=== PATIENT | female | born 1940 | race Two or more races ===

== ENCOUNTER 2023-12-09 18:10 | Inpatient (IN) | payer MEDICARE, BC ==
[~2023-12-09] VITALS: Ht 154.9 cm; Wt 55.8 kg
[2023-12-09 18:55] VITALS: PULSE 132; RESP 38; O2SAT 90
[2023-12-09] MEDS: dilTIAZem 25 MG/5 ML VIAL IV ONE (19:04)
[2023-12-09 19:07] LABS: Basophils # (auto) 0 10 ^3/uL (0-0.2); Basophils % (auto) 0.6 % (0.0-2.0); Eosinophils # (auto) 0.1 10 ^3/uL (0-0.8); Eosinophils % (auto) 0.9 % (0.0-7.0); Hematocrit 45.3 % (36.0-46.0); Hemoglobin 14.8 g/dL (12.2-16.2); Lymphocytes # (auto) 1.3 10 ^3/uL (0.4-5.4); Lymphocytes % (auto) 16.8 % (10.0-50.0); Mean Corpuscular Hemoglobin 27.5 pg (28.0-32.0); Mean Corpuscular Hgb Conc. 32.6 g/dL (32.0-36.0); Mean Corpuscular Volume 84.4 fL (80.0-100.0); Monocytes # (auto) 0.7 10 ^3/uL (0-1.3); Neutrophils # (auto) 5.6 10 ^3/uL (1.6-8.6); Neutrophils % (auto) 72.7 % (37.0-80.0); Nucleated Red Blood Cells % 0.4 %; Red Blood Cells 5.37 10^6/uL (4.0-5.20); Red Cell Distribution Width 16.2 % (11.8-14.3); White Blood Cell 7.7 10^3/uL (4.4-10.8)
[2023-12-09 19:23] LABS: Alanine Aminotransferase 15 U/L (7-40); Albumin 3.1 g/dL (3.2-4.8); Alkaline Phosphatase 104 U/L (46-116); Anion Gap 9 (5-15); Aspartate Aminotransferase 11 U/L (13-40); BUN/Creatinine Ratio 21.7 (10.0-20.0); Bilirubin, Total 1.5 mg/dL (0.2-1.0); Blood Urea Nitrogen 25 mg/dL (9-23); Calcium 9.2 mg/dL (8.7-10.4); Carbon Dioxide 20 mmol/L (20-30); Chloride 114 mmol/L (98-107); Glucose 106 mg/dL (74-106); Lipase 35 U/L (12-53); Potassium 4.7 mmol/L (3.5-5.1); Sodium 143 mmol/L (136-145); Total Protein 7.5 g/dL (5.7-8.2)
[2023-12-09 19:26] LABS: Lactic Acid w/Reflex 2.1 mmol/L (0.4-2.0)
[2023-12-09 19:45] VITALS: PULSE 86; RESP 33; O2SAT 93
[2023-12-09] MEDS: ENOXAPARIN SOD 40 MG/0.4 ML SYRINGE SC ONE (19:45)
[2023-12-09] MEDS: FUROSEMIDE 40 MG/4 ML VIAL IV ONE (19:45)
[2023-12-09] MEDS: SODIUM CHLORIDE 0.9% 1,000 ML IV ONE (19:57)
[2023-12-09] MEDS ORDERED: ONDANSETRON HCL 4 MG/2 ML VIAL IV PRN (20:15)
[2023-12-09] MEDS ORDERED: HYDROmorphone HCL 2 MG/ML VL/or syr IV PRN (20:15)
[2023-12-09] MEDS ORDERED: NITROGLYCERIN 0.4 MG SL TAB SL PRN (20:15)
[2023-12-09] MEDS ORDERED: HYDROcodone-ACET 5/325MG TAB PO PRN (20:15)
[2023-12-09] MEDS ORDERED: ACETAMINOPHEN 325 MG TAB PO PRN (20:15)
[2023-12-09] MEDS ORDERED: MORPHINE SULFATE INJ 2 MG/ml SYRG IV PRN (20:15)
[2023-12-09] MEDS: IOHEXOL 350 MG/ML 100ML IJ ONE (21:11)
[2023-12-09] MEDS: SODIUM CHLOR 0.9% PF (SALINE LOCK) 10ML VIAL/SYR IV SCH (22:28)
[2023-12-09 22:57] LABS: Basophils # (auto) 0 10 ^3/uL (0-0.2); Basophils % (auto) 0.4 % (0.0-2.0); Eosinophils # (auto) 0.1 10 ^3/uL (0-0.8); Eosinophils % (auto) 0.9 % (0.0-7.0); Hematocrit 46.3 % (36.0-46.0); Hemoglobin 14.5 g/dL (12.2-16.2); Lymphocytes # (auto) 1.5 10 ^3/uL (0.4-5.4); Lymphocytes % (auto) 17.3 % (10.0-50.0); Mean Corpuscular Hemoglobin 27.5 pg (28.0-32.0); Mean Corpuscular Hgb Conc. 31.3 g/dL (32.0-36.0); Mean Corpuscular Volume 87.7 fL (80.0-100.0); Monocytes # (auto) 0.9 10 ^3/uL (0-1.3); Monocytes % (auto) 10.2 % (0.0-12.0); Neutrophils # (auto) 6.1 10 ^3/uL (1.6-8.6); Neutrophils % (auto) 71.2 % (37.0-80.0); Nucleated Red Blood Cells % 0.6 %; Red Blood Cells 5.27 10^6/uL (4.0-5.20); Red Cell Distribution Width 16.7 % (11.8-14.3); White Blood Cell 8.6 10^3/uL (4.4-10.8)
[2023-12-09] MEDS: LACTATED RINGER'S 500 ML IV ONE (23:00)
[2023-12-09] MEDS: FUROSEMIDE 40 MG/4 ML VIAL IV SCH (23:03)
[2023-12-09 23:21] LABS: INR 1.6 (0.9-1.15); Partial Thromboplastin Time 28.9 SEC (24.5-34.5); Prothrombin Time 16.4 sec (9.3-11.8)
[2023-12-10] VITALS (9 sets, daily range): BP systolic 115–161; BP diastolic 73–103; PULSE 72–146; RESP 16–22; TEMP 97.9–98.7; O2SAT 91–98
[2023-12-10] MEDS: ENOXAPARIN SOD 40 MG/0.4 ML SYRINGE SC SCH (00:46)
[2023-12-10] MEDS ORDERED: IOHEXOL 350 MG/ML 100ML IJ ONE (06:19)
[2023-12-10] MEDS: cloNIDine HCL 0.1 MG TAB PO ONE (07:37)
[2023-12-10 07:49] LABS: Urine Bacteria FEW /hpf (None Seen); Urine Blood 1+ /uL (Negative); Urine Clarity Turbid (Clear); Urine Protein, UAD Negative (Negative); Urine Specific Gravity 1.009 (1.001-1.035); Urine Urobilinogen Normal (Negative); Urine WBC 3 /hpf (0 - 5)
[2023-12-10 07:53] LABS: Urine Color STRAW (Yellow)
[2023-12-10 09:31] LABS: Basophils # (auto) 0 10 ^3/uL (0-0.2); Basophils % (auto) 0.4 % (0.0-2.0); Eosinophils # (auto) 0 10 ^3/uL (0-0.8); Eosinophils % (auto) 0.4 % (0.0-7.0); Hematocrit 49.7 % (36.0-46.0); Hemoglobin 16.1 g/dL (12.2-16.2); Lymphocytes # (auto) 0.8 10 ^3/uL (0.4-5.4); Lymphocytes % (auto) 10.9 % (10.0-50.0); Mean Corpuscular Hemoglobin 27.3 pg (28.0-32.0); Mean Corpuscular Hgb Conc. 32.3 g/dL (32.0-36.0); Mean Corpuscular Volume 84.7 fL (80.0-100.0); Monocytes # (auto) 0.5 10 ^3/uL (0-1.3); Monocytes % (auto) 5.9 % (0.0-12.0); Neutrophils # (auto) 6.3 10 ^3/uL (1.6-8.6); Neutrophils % (auto) 82.4 % (37.0-80.0); Nucleated Red Blood Cells % 0.5 %; Red Blood Cells 5.88 10^6/uL (4.0-5.20); Red Cell Distribution Width 16.4 % (11.8-14.3); White Blood Cell 7.7 10^3/uL (4.4-10.8)
[2023-12-10 09:57] LABS: Alanine Aminotransferase 14 U/L (7-40); Albumin 3.3 g/dL (3.2-4.8); Alkaline Phosphatase 112 U/L (46-116); Anion Gap 6 (5-15); Aspartate Aminotransferase 14 U/L (13-40); BUN/Creatinine Ratio 19.7 (10.0-20.0); Blood Urea Nitrogen 23 mg/dL (9-23); Calcium 9.3 mg/dL (8.7-10.4); Carbon Dioxide 26 mmol/L (20-30); Chloride 109 mmol/L (98-107); Glucose 126 mg/dL (74-106); Sodium 141 mmol/L (136-145)
[2023-12-10 09:58] LABS: Bilirubin, Total 1.9 mg/dL (0.2-1.0); Total Protein 7.7 g/dL (5.7-8.2)
[2023-12-10] MEDS ORDERED: LABETALOL HCL 20 MG/4 ML VL IV PRN (10:00)
[2023-12-10] MEDS ORDERED: ENOXAPARIN SOD 40 MG/0.4 ML SYRINGE SC SCH (10:00)
[2023-12-10 10:06] LABS: Lactic Acid w/Reflex 2.2 mmol/L (0.4-2.0)
[2023-12-10] MEDS: cefTRIAXone 1GM/50ML D5W 50 ML IV ONE (11:29)
[2023-12-10] MEDS: METOPROLOL TARTRATE 25 MG TAB PO SCH (11:31)
[2023-12-10] MEDS ORDERED: HEPARIN DRIP/D5W 100UNITS/ML 250 ML IV SCH ×2 (12:45)
[2023-12-10] MEDS: HEPARIN DRIP/D5W 100UNITS/ML 250 ML IV SCH (17:57)
[2023-12-10] MEDS ORDERED: ENOXAPARIN SOD 80 MG/0.8ML SYRINGE SC SCH ×2 (19:00→22:00)
[2023-12-10 19:51] LABS: Body Fluid Polymorphonuclear 20 % (0-25); Body Fluid Red Blood Cells 1150 CUMM (0-2000); Body Fluid White Blood Cells 360 CUMM (0-200)
[2023-12-10 19:56] LABS: Basophils # (auto) 0 10 ^3/uL (0-0.2); Basophils % (auto) 0.3 % (0.0-2.0); Eosinophils # (auto) 0.1 10 ^3/uL (0-0.8); Eosinophils % (auto) 0.8 % (0.0-7.0); Hematocrit 46.7 % (36.0-46.0); Hemoglobin 14.8 g/dL (12.2-16.2); Lymphocytes # (auto) 0.8 10 ^3/uL (0.4-5.4); Lymphocytes % (auto) 9.5 % (10.0-50.0); Mean Corpuscular Hemoglobin 27.3 pg (28.0-32.0); Mean Corpuscular Hgb Conc. 31.7 g/dL (32.0-36.0); Mean Corpuscular Volume 86.3 fL (80.0-100.0); Monocytes # (auto) 0.5 10 ^3/uL (0-1.3); Monocytes % (auto) 5.9 % (0.0-12.0); Neutrophils # (auto) 7.4 10 ^3/uL (1.6-8.6); Neutrophils % (auto) 83.5 % (37.0-80.0); Nucleated Red Blood Cells % 0.3 %; Red Cell Distribution Width 16.2 % (11.8-14.3); White Blood Cell 8.8 10^3/uL (4.4-10.8)
[2023-12-10 20:16] LABS: INR 1.54 (0.9-1.15); Partial Thromboplastin Time 34.5 SEC (24.5-34.5); Prothrombin Time 15.8 sec (9.3-11.8)
[2023-12-11] VITALS (8 sets, daily range): BP systolic 118–149; BP diastolic 65–92; PULSE 59–96; RESP 17–22; TEMP 97–98.6; O2SAT 93–99
[2023-12-11 01:16] LABS: INR 1.54 (0.9-1.15); Partial Thromboplastin Time 40.7 SEC (24.5-34.5); Prothrombin Time 15.8 sec (9.3-11.8)
[2023-12-11] MEDS: HEPARIN DRIP/D5W 100UNITS/ML 250 ML IV SCH ×2 (01:33→09:53)
[2023-12-11 06:05] LABS: Alanine Aminotransferase 11 U/L (7-40); Albumin 2.8 g/dL (3.2-4.8); Alkaline Phosphatase 93 U/L (46-116); Anion Gap 10 (5-15); Aspartate Aminotransferase 14 U/L (13-40); BUN/Creatinine Ratio 19.8 (10.0-20.0); Blood Urea Nitrogen 22 mg/dL (9-23); Calcium 8.7 mg/dL (8.7-10.4); Carbon Dioxide 31 mmol/L (20-30); Chloride 101 mmol/L (98-107); Glucose 119 mg/dL (74-106); Potassium 3.1 mmol/L (3.5-5.1); Sodium 142 mmol/L (136-145)
[2023-12-11 06:06] LABS: Bilirubin, Total 1.5 mg/dL (0.2-1.0)
[2023-12-11] MEDS ORDERED: POTASSIUM CHL 20MEQ/100ML 100 ML IV SCH (07:30)
[2023-12-11] MEDS: POTASSIUM EFFERVESENT TAB 25 MEQ PO ONE ×2 (07:30→08:23)
[2023-12-11 08:12] LABS: INR 1.64 (0.9-1.15); Prothrombin Time 16.8 sec (9.3-11.8)
[2023-12-11 08:19] LABS: Partial Thromboplastin Time > 139.0 SEC (24.5-34.5)
[2023-12-11] MEDS: SPIRONOLACTONE 25 MG TAB PO SCH (08:22)
[2023-12-11] MEDS: cefTRIAXone 1GM/50ML D5W 50 ML IV SCH (08:22)
[2023-12-11] MEDS: METOPROLOL SUCCINATE XL 50 MG TAB PO SCH (08:23)
[2023-12-11] MEDS: SACUBITRIL-VALSARTAN 24mg/26mg TAB PO SCH (08:26)
[2023-12-11] MEDS: APIXABAN 2.5 MG TAB PO SCH (21:10)
[2023-12-12] VITALS (8 sets, daily range): BP systolic 118–148; BP diastolic 69–92; PULSE 74–103; RESP 16–18; TEMP 97.1–98.1; O2SAT 93–96
[2023-12-12 00:44] LABS: Chloride 100 mmol/L (98-107); Potassium 3.8 mmol/L (3.5-5.1); Sodium 137 mmol/L (136-145)
[2023-12-12 00:45] LABS: Anion Gap 6 (5-15); Carbon Dioxide 31 mmol/L (20-30)
[2023-12-12 00:46] LABS: Calcium 8.7 mg/dL (8.7-10.4)
[2023-12-12 00:51] LABS: BUN/Creatinine Ratio 18.4 (10.0-20.0); Blood Urea Nitrogen 19 mg/dL (9-23); Glucose 92 mg/dL (74-106)
[2023-12-12] MEDS: METOPROLOL SUCCINATE XL 50 MG TAB PO SCH (11:48)
[2023-12-12] MEDS: Ensure HIGH Protein Chocolate 8oz Bottle PO SCH (12:07)
[2023-12-13 01:00] VITALS: BP 128/67; PULSE 88; RESP 20; TEMP 98.3; O2SAT 97
[2023-12-13 05:00] VITALS: BP 131/71; PULSE 85; RESP 20; TEMP 98.2; O2SAT 94
[2023-12-13 08:00] VITALS: PULSE 110; PULSE 97; RESP 18; O2SAT 96
[2023-12-13 09:00] VITALS: BP 127/72; PULSE 96; RESP 18; TEMP 97.9; O2SAT 95
[2023-12-13 13:31] VITALS: BP 127/72; PULSE 110; RESP 17; TEMP 36.8; O2SAT 96
[2023-12-13] MEDS ORDERED: METOPROLOL SUCCINATE XL 50 MG TAB PO ONE (20:00)
[2023-12-14] MEDS ORDERED: METOPROLOL SUCCINATE XL 50 MG TAB PO SCH (20:00)
== END 2023-12-13 14:59 | disposition hospice, home (50) | DRG 871 ==
LOC: ER 18:10 → TELE 20:08 → TELE-CENTR 12-10 02:40
PROVIDERS: ADMIT Internal Medicine Geriatric Medicine; ATTEND Internal Medicine Geriatric Medicine
PROC: 0W9B3ZZ Drainage of Left Pleural Cavity, Percutaneous Approach (ICD-10-PCS; principal; 2023-12-10)
PROC: 05HC33Z Insertion of Infusion Device into Left Basilic Vein, Percutaneous Approach (ICD-10-PCS; 2023-12-11)
PROC: B54NZZA Ultrasonography of Left Upper Extremity Veins, Guidance (ICD-10-PCS; 2023-12-11)
DX: A41.9 Sepsis, unspecified organism (principal); I50.21 Acute systolic (congestive) heart failure; N17.9 Acute kidney failure, unspecified; N39.0 Urinary tract infection, site not specified; J98.11 Atelectasis; E87.20 Acidosis, unspecified; I82.C11 Acute embolism and thrombosis of right internal jugular vein; I82.A11 Acute embolism and thrombosis of right axillary vein; I82.621 Acute embolism and thrombosis of deep veins of right upper extremity; J91.8 Pleural effusion in other conditions classified elsewhere; I13.0 Hypertensive heart and chronic kidney disease with heart failure and stage 1 through stage 4 chronic kidney disease, or unspecified chronic kidney disease; I48.91 Unspecified atrial fibrillation; N18.9 Chronic kidney disease, unspecified; D69.6 Thrombocytopenia, unspecified; E87.6 Hypokalemia; E04.2 Nontoxic multinodular goiter; Z79.899 Other long term (current) drug therapy
CPT/HCPCS: 32555; 36415; 71045; 71275; 76536; 76604; 76942; 80048; 80053; 81001; 83036; 83605; 83690; 83735; 83880; 83986; 84439; 84443; 84484; 85025; 85379; 85610; 85730; 86850; 86900; 86901; 87086; 87088; 87186; 87205; 89051; 93005; 93306; 93970; 93971; 96365; 96372; 96375; 97163; G0378

== ENCOUNTER 2024-12-22 06:58 | Outpatient (CLI) | payer MEDICARE ==
[2024-12-22 07:39] LABS: Urine Protein, UAD Negative (Negative)
[2024-12-22 07:50] LABS: Hematocrit 39.8 % (36.0-46.0); Hemoglobin 13.4 g/dL (12.2-16.2); Mean Corpuscular Hemoglobin 31.2 pg (28.0-32.0); Mean Corpuscular Volume 92.5 fL (80.0-100.0); Nucleated Red Blood Cells % 0.2 %
[2024-12-22 08:04] LABS: Alanine Aminotransferase 13 U/L (7-40); Albumin 4.4 g/dL (3.2-4.8); Alkaline Phosphatase 109 U/L (46-116); Anion Gap 7 (5-15); BUN/Creatinine Ratio 24.7 (10.0-20.0); Calcium 9.7 mg/dL (8.7-10.4); Carbon Dioxide 30 mmol/L (20-31); Chloride 103 mmol/L (98-107); Cholesterol 188 mg/dL (< 200); Glucose 100 mg/dL (74-106); Potassium 4.8 mmol/L (3.5-5.1); Sodium 140 mmol/L (136-145); Triglycerides 90 mg/dL (< 150)
[2024-12-22 08:05] LABS: Bilirubin, Total 0.4 mg/dL (0.2-1.0)
[2024-12-22 08:13] LABS: Blood Urea Nitrogen 53 mg/dL (9-23); HDL Cholesterol 62 mg/dL (40-59); Total Protein 8.6 g/dL (5.7-8.2)
== END 2024-12-22 17:00 | disposition home or self-care (01) ==
LOC: LAB 06:58
PROVIDERS: ATTEND Internal Medicine
DX: I10 Essential (primary) hypertension (principal); R73.9 Hyperglycemia, unspecified; E55.9 Vitamin D deficiency, unspecified
CPT/HCPCS: 36415; 80053; 80061; 81001; 82306; 82607; 83036; 84443; 85025; 86780